=== PATIENT | female | born 1965 | race Caucasian/White ===

== ENCOUNTER 2019-09-14 10:07 | Outpatient (CLI) | payer OTHER, SELFPAY | END 2019-09-14 23:59 | disposition home or self-care (01) | LOC: MLB 10:07 → EDSTATUS 09-24 07:30 | PROVIDERS: ATTEND Obstetrics & Gynecology | DX: Z01.818 Encounter for other preprocedural examination (principal); Z11.59 Encounter for screening for other viral diseases | CPT/HCPCS: U0003-CS ==